=== PATIENT | female | born 1950 | race Caucasian/White ===

== ENCOUNTER 2019-06-28 07:08 | Emergency (ER) | payer MEDICARE ==
[2019-06-28 07:25] VITALS: BP 147/82
--- NOTE | 2019-06-28 08:01 | UC ---
Complaint Female HPI - HPI Summary HPI Summary: 69 yo woman with onset of dysuria and hematuria this morning. No recent hx of urianry infections, but has been drinking less water recently due to being very busy preparing for travel and working. - History Of Current Complaint Chief Complaint: UCGU Stated Complaint: URINARY ISSUE Time Seen by Provider: 06/28/19 07:16 Hx Obtained From: Patient Onset/Duration: Sudden Onset, Lasting Hours Timing: Constant - sense of bladder pressure Severity Initially: Mild Severity Currently: Mild Pain Intensity: 4 Character: Burning, Cramping Aggravating Factor(s): Urination Alleviating Factor(s): Nothing Associated Signs And Symptoms: Positive: Negative - Risk Factors Ectopic Risk Factor: Negative Ovarian Torsion Risk Factor: Negative - Allergies/Home Medications Allergies/Adverse Reactions: Allergies Allergy/AdvReac Type Severity Reaction Status Date / Time bee venom protein (honey bee) Allergy Hives/Diff. Verified 06/28/19 07:25 Breathing/I tching Home Medications: Home Medications Roberta Root 1 tab PO DAILY 06/28/19 [History Confirmed 06/28/19] [place]-3 Fatty Acids/Fish Oil [Fish Oil 1,000 mg Softgel] 1 tab PO DAILY [History Confirmed 06/28/19] Turmeric 1 dose PO DAILY 06/28/19 [History Confirmed 06/28/19] PMH/Surg Hx/FS Hx/Imm Hx Previously Healthy: Yes Cardiovascular History: Hypertension - Surgical History Surgical History: Yes Surgery Procedure, Year, and Place: HYSTERECTOMY 1991 - Family History Known Family History: Positive: Non-Contributory - Social History Occupation: Employed Full-time Lives: With Family Alcohol Use: Occasionally Substance Use Type: None Smoking Status (MU): Never Smoked Tobacco Review of Systems All Other Systems Reviewed And Are Negative: Yes Constitutional: Positive: Negative Skin: Positive: Negative Eyes: Positive: Negative ENT: Positive: Negative Respiratory: Positive: Negative Cardiovascular: Positive: Negative Gastrointestinal: Positive: Negative Genitourinary: Positive: Dysuria, Hematuria, Urgency Motor: Positive: Negative Neurovascular: Positive: Negative Musculoskeletal: Positive: Negative Neurological: Positive: Negative Psychological: Positive: Negative Is Patient Immunocompromised?: No Physical Exam Triage Information Reviewed: Yes Appearance: Well-Appearing, No Pain Distress Vital Signs: Initial Vital Signs Temp 97.3 F 06/28/19 07:20 Pulse 68 06/28/19 07:20 Resp 18 06/28/19 07:20 BP 147/82 06/28/19 07:20 Pulse Ox 97 06/28/19 07:20 Eye Exam: Normal ENT: Positive: Normal ENT inspection Neck: Positive: Supple, Nontender, No Lymphadenopathy Respiratory: Positive: Lungs clear, Normal breath sounds Cardiovascular: Positive: RRR, No Murmur Abdomen Description: Positive: Other: - mild suprapubic tenderness. Negative: CVA Tenderness (R), CVA Tenderness (L) Musculoskeletal Exam: Normal Neurological Exam: Normal Psychological Exam: Normal Skin Exam: Normal Complaint Female Dx - Course Course Of Treatment: treated with bactrim; discussed use of pyridium; culture sent. - Differential Dx/Diagnosis Differential Diagnosis/HQI/PQRI: Renal Colic, Urinary Tract Infection Provider Diagnosis: UTI (urinary tract infection) Discharge ED - Sign-Out/Discharge Documenting (check all that apply): Patient Departure All imaging exams completed and their final reports reviewed: No Studies - Discharge Plan Condition: Good Disposition: HOME Prescriptions: Nitrofurantoin Monohyd/M-Cryst [Macrobid 100 mg Capsule] 100 mg PO BID #14 cap Phenazopyridine 200 mg (NF) [Pyridium 200 MG tab *] 200 mg PO TID PRN #6 tab PRN Reason: Spasms - Bladder Patient Education Materials: Urinary Tract Infection in Women (ED) Referrals: Clayton Murphy MD [Primary Care Provider] - Additional Instructions: Your blood pressure reading is elevated today t0 147/82; ensure that you are checking your blood pressure regularly and follow up with Dr. Murphy if the readings are consistently in this range. Please take the full course of antibiotics. Increase water intake during this time. Pyridium can be used to relieve bladder pain and spasm. - Billing Disposition and Condition Condition: GOOD Disposition: Home
== END 2019-06-28 08:20 | disposition home or self-care (01) ==
LOC: UCEAST 07:08
DX: N39.0 Urinary tract infection, site not specified (principal); I10 Essential (primary) hypertension; R31.9 Hematuria, unspecified; Z91.030 Bee allergy status
CPT/HCPCS: 81003; 87086; 99212; G0463